=== PATIENT | female | born 1980 | race Caucasian/White ===

== ENCOUNTER 2022-12-04 22:50 | Emergency (ER) | payer MEDICAID, OTHER ==
[~2022-12-04] VITALS: Ht 170.2 cm; Wt 70.0 kg
[2022-12-04] MEDS ORDERED: KETOROLAC 60MG/2ML VIAL IM STA (23:56)
[2022-12-05 00:19] LABS: BASOPHILS % 1.1 % (0.0-2.0); EOSINOPHILS % 2.2 % (0.0-5.0); HEMATOCRIT. 37.5 % (36.0-48.0); HEMOGLOBIN. 12.6 g/dL (12.0-16.0); LYMPHOCYTES % 35.6 % (20.0-50.0); MEAN CORPUSCULAR HEMOGLOBIN 31.8 pg (28.0-32.0); MEAN CORPUSCULAR VOLUME 94.6 fL (81.0-99.0); MEAN PLATELET VOLUME 7.4 fl (7.4-10.4); MONOCYTES % 6.4 % (2.0-8.0); NEUTROPHILS % 54.7 % (40.0-76.0); PLATELET 375 x1000/uL (130-400); RED BLOOD CELL COUNT 3.97 mill/uL (4.2-5.4); RED CELL DISTRIBUTION WIDTH 12.9 % (11.6-14.6)
[2022-12-05 00:21] LABS: CHLORIDE 107 mEq/L (98-107)
[2022-12-05 00:27] VITALS: BP 107/58
[2022-12-05] MEDS ORDERED: IBUP-2029 MT (01:28)
[2022-12-05] MEDS ORDERED: METH-653 MT (01:28)
== END 2022-12-05 02:01 | disposition home or self-care (01) ==
LOC: ER 22:50
DX: R09.1 Pleurisy (principal); F41.9 Anxiety disorder, unspecified; Z90.710 Acquired absence of both cervix and uterus; Z88.3 Allergy status to other anti-infective agents
CPT/HCPCS: 36415; 71045; 80053; 81025; 84484; 85025; 93005; 96372; 99285; J1885